=== PATIENT | male | born 1975 | race African-American/Black ===

== ENCOUNTER 2019-10-18 14:10 | Emergency (ER) | payer BC ==
[2019-10-18] MEDS ORDERED: predniSONE 20 MG Tab PO ONE (15:31)
[2019-10-18] MEDS ORDERED: Ketorolac 60 MG/2 ML SDV IM ONE (15:31)
--- NOTE | 2019-10-18 15:31 | EDM.PDOC ---
ED HPI GENERAL MEDICAL PROBLEM - General Chief Complaint: Flank Pain Stated Complaint: RT SIDE PAIN AND BACK PAIN Time Seen by Provider: 10/18/19 15:18 Source of Information: Reports: Patient, RN Notes Reviewed History Limitations: Reports: No Limitations - History of Present Illness INITIAL COMMENTS - FREE TEXT/NARRATIVE: Patient is a 44-year-old male who presents to the ED for his ongoing back/side pain. Patient notes he was seen by his primary care provider in [facility], 1-1/2 weeks ago, and was evaluated for right flank/low back pain. He notes that she did take labs at that time, and prescribed him a muscle relaxer, but he cannot remember the name. They came to the conclusion that he may have pulled a muscle while moving boxes to a new apartment. Patient notes that the pain really has not gotten much better. He is used Vera aspirin, 2 tabs, sporadically. But he is not taking any pain medications consistently. He notes the pain to be more of a discomfort or ache, that does get to be a sharp stabbing pain, when he lays on his side in bed. He states that the pain is mostly near the top of his hip joints, towards the mid back. He denies any symptoms of UTI like dysuria/frequency/urgency, he denies any fever/chills, cough/shortness of breath, or any nausea/vomiting/diarrhea. 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 ED EXAM,LOWER BACK PAIN/INJURY - Physical Exam Exam: See Below Exam Limited By: No Limitations General Appearance: Alert, WD/WN, No Apparent Distress Respiratory/Chest: No Respiratory Distress, Lungs Clear, Normal Breath Sounds, No Accessory Muscle Use, Chest Non-Tender Cardiovascular: Normal Peripheral Pulses, Regular Rate, Rhythm, No Murmur Back Exam: Normal Inspection, Full Range of Motion, Other (SI joint tenderness) Extremities: Normal Inspection, Normal Capillary Refill Neurological: Alert, Normal Mood/Affect, Normal Dorsiflexion, Normal Plantar Flexion Psychiatric: Normal Affect, Normal Mood Skin Exam: Warm, Dry, Intact, Normal Color, No Rash Course - Vital Signs Last Recorded V/S: Last Vital Signs Temp 97.0 F 10/18/19 14:20 Pulse 71 10/18/19 14:20 Resp 16 10/18/19 14:20 BP 146/87 H 10/18/19 14:20 Pulse Ox 100 10/18/19 14:20 - Orders/Labs/Meds Meds: Medications Discontinued Medications Generic Name Dose Route Start Last Admin Trade Name Freq PRN Reason Stop Dose Admin Ketorolac Tromethamine 60 mg 10/18/19 15:31 Toradol IM 10/18/19 15:32 ONETIME ONE Prednisone 20 mg 10/18/19 15:31 Prednisone PO 10/18/19 15:32 ONETIME ONE - Re-Assessments/Exams Free Text/Narrative Re-Assessment/Exam: 10/18/19 15:36 Patient presents to the ED for evaluation of his ongoing back pain. I have ordered 60 mg IM Toradol and 20mg PO prednisone for initial management, as I do believe it is SI joint dysfunction in nature. Patient be discharged home with general recommendations and a course of prednisone. Departure - Departure Time of Disposition: 15:37 Disposition: Home, Self-Care 01 Condition: Good Clinical Impression: SI (sacroiliac) joint inflammation - Discharge Information *PRESCRIPTION DRUG MONITORING PROGRAM REVIEWED*: No *COPY OF PRESCRIPTION DRUG MONITORING REPORT IN PATIENT JOHN: No Prescriptions: predniSONE 20 mg PO ASDIRECTED #15 tab Instructions: Sacroiliac Joint Dysfunction Referrals: PCP,Not In Area [Primary Care Provider] - Forms: ED Department Discharge Additional Instructions: You have been evaluated in the ED for your lower back pain. Please use ice/heat as tolerated to the affected area. You were given a prescription for prednisone, please take as directed until the course is gone. This was electronically prescribed to the [place] [facility] located in the [facility] [employer] [facility], you will need to go there tomorrow during normal business hours and pick this up and start taking as directed. If your back pain does not seem to be getting better after using this medication, recommend you seek care for further management and reevaluation. Please return to ED if your symptoms should change or worsen. Sepsis Event Note (ED) - Evaluation Sepsis Screening Result: No Definite Risk - Focused Exam Vital Signs: Vital Signs Temp Pulse Resp BP Pulse Ox 10/18/19 14:20 97.0 F 71 16 146/87 H 100
== END 2019-10-18 15:55 | disposition home or self-care (01) ==
LOC: JD.ED 14:10
DX: M46.1 Sacroiliitis, not elsewhere classified (principal); I10 Essential (primary) hypertension; Z79.899 Other long term (current) drug therapy
CPT/HCPCS: 96372; 99283; J1885; J7512